=== PATIENT | female | born 1970 | race Hispanic/Latino ===

== ENCOUNTER 2019-04-11 07:25 | Day surgery (SDC) | payer BC ==
[~2019-04-11] VITALS: Ht 152.4 cm; Wt 83.0 kg
[~2019-04-11 07:25] MED LIST: ABAT125S SQ; BUSP10TA3 PO; LEVO88TA7 PO; SODIUM CHLORIDE 0.9% 1000ML 1,000 ML IV ONE
[2019-04-11 08:29] VITALS: BP 141/87
[2019-04-11 08:58] VITALS: BP 109/55
[2019-04-11 09:03] VITALS: BP 112/55
[2019-04-11 09:08] VITALS: BP 118/55
[2019-04-11 09:13] VITALS: BP 120/55
[2019-04-11 09:18] VITALS: BP 132/60
--- NOTE | 2019-04-11 09:23 | NUR ---
DC PT DC HOME VIA WC, NO DISTRESS NOTED. DENIED ANY PAIN OR DISCOMFORTS. PATIENT ACCOMPANIED BY MOM , DC INSTRUCTIONS REINFORCED TO F/U WITH DR. YIP. TO CONTINUE HOME MEDS
== END 2019-04-11 09:23 | disposition home or self-care (01) ==
LOC: ENDO 07:25 → DAH 07:25 → ENDO 09:23
PROVIDERS: ATTEND Surgery
DX: K21.9 Gastro-esophageal reflux disease without esophagitis (principal); F41.9 Anxiety disorder, unspecified; Z88.3 Allergy status to other anti-infective agents; Z90.3 Acquired absence of stomach [part of]; Z79.899 Other long term (current) drug therapy; Z98.890 Other specified postprocedural states; Z90.710 Acquired absence of both cervix and uterus; Z72.89 Other problems related to lifestyle; Z82.49 Family history of ischemic heart disease and other diseases of the circulatory system; Z83.3 Family history of diabetes mellitus
CPT/HCPCS: 43235; A4215; A4221; A4222; A4223; A4606; A4663; J7030

== ENCOUNTER → 2019-06-03 | Outpatient (CLI) | payer OTHER, BC ==
[~2019-06-03] MED LIST changes: +IOHEXOL-350 75 ML VIAL IV ONE; -SODIUM CHLORIDE 0.9% 1000ML 1,000 ML IV ONE
== END | disposition home or self-care (01) ==
LOC: RAH 08:55
PROVIDERS: ATTEND Internal Medicine
DX: N20.0 Calculus of kidney (principal); R16.0 Hepatomegaly, not elsewhere classified; M47.815 Spondylosis without myelopathy or radiculopathy, thoracolumbar region
CPT/HCPCS: 74170; Q9967

== ENCOUNTER → 2021-02-19 | Outpatient (CLI) | payer OTHER, BC ==
[~2021-02-19] MED LIST changes: -IOHEXOL-350 75 ML VIAL IV ONE
== END | disposition home or self-care (01) ==
LOC: RAH 08:06
PROVIDERS: ATTEND Urology
DX: N20.0 Calculus of kidney (principal); K59.00 Constipation, unspecified
CPT/HCPCS: 74018; 76100

== ENCOUNTER → 2021-03-15 | Outpatient (CLI) | payer OTHER, BC | END | disposition home or self-care (01) | LOC: RAH 07:39 | PROVIDERS: ATTEND Urology | DX: N20.0 Calculus of kidney (principal); I87.8 Other specified disorders of veins | CPT/HCPCS: 74018; 76100 ==